=== PATIENT | male | born 1985 | race Caucasian/White ===

== ENCOUNTER 2019-03-12 17:17 | Emergency (ER) | payer BC, OTHER ==
[~2019-03-12] VITALS: Ht 175.3 cm; Wt 91.0 kg
[2019-03-12 17:20] VITALS: BP 140/98
== END 2019-03-12 19:50 | disposition left against medical advice (07) ==
LOC: ER 17:17
DX: Z53.21 Procedure and treatment not carried out due to patient leaving prior to being seen by health care provider (principal)